=== PATIENT | female | born 1950 | race Caucasian/White ===

== ENCOUNTER 2021-10-24 12:21 | Outpatient (REF) | payer MEDICARE, OTHER, SELFPAY ==
[2021-10-24 15:22] LABS: COVID-19 Test Negative (Negative); IDNOW Serial# 16C4AD1C
== END 2021-10-24 12:22 | disposition home or self-care (01) ==
LOC: HO.LAB 12:21
PROVIDERS: Visit Provider Internal Medicine
DX: Z20.822 Contact with and (suspected) exposure to COVID-19 (principal)
CPT/HCPCS: 36415; 87635

== ENCOUNTER 2025-03-04 11:30 | Outpatient (REF) | payer MEDICARE, OTHER, SELFPAY ==
--- NOTE | ~2025-03-04 | XR_ITS ---
EXAMINATION: XR SINUSES CLINICAL INFORMATION: SINUSITIS COMPARISON: None available. TECHNIQUE: 3 views of the sinuses were obtained. FINDINGS: Paranasal sinuses all appear well pneumatized without definite air-fluid levels present. There is no radiographic evidence of significant sinus disease. The nasal septum appears largely midline. The orbits are intact. The nasal bones are intact. There is no calvarial or bone lesion. The sella is normal in size. Mastoids appear pneumatized. XR/XR sinus min 3V IMPRESSION: No radiographic evidence of significant sinus disease. If warranted, CT is far more sensitive. Electronically signed by: Boone Hsieh MD 03/04/2025 12:22 PM EDT
--- OUTSIDE RECORDS SUMMARY | 2025-03-04 12:22 | XMS_ITS | Patient Health Record ---
Author Organization [facility] Address [address] [place] [address] Care Team Providers Care Evp Name Role Phone Erin Mijares Primary Care Provider Unavail able Allergies Allergen (clinical drug ingredient) Drug/Non Drug Allergy documented on EMR Reaction Allergy Type Onset Date Status Substance with penicillin structure and antibacterial mechanism of action (substance) Penicillins Unknown Drug Allergy Active Reason For Referral No Information Medications Medication SIG (Take, Route, Frequency, Duration) Notes Start Date End Date Status Benicar Active Crestor Active PROzac 1 tab every other day Active Problems Problem Type SNOMED Code ICD Code Onset Dates Problem Status W/U Status Risk Notes Problem [id number] Acquired hallux rigidus of left foot (M20.22) Active confirmed Plan Of Treatment Pending Test Test Name Order Date X ray : Foot, left 3v 05/28/2021 Insurance Providers Payer Name Payer Address Payer Phone Subscriber Number Group Number Insured Name Patient Relationship to Insured Coverage Start Date Coverage End Date Medicare of [place] [address] [place] A[place]Y [id number] Hattie Radford Self - patient is the insured [facility] [address] [place] [address] [id number] Hattie Radford Self - patient is the insured Medical (General) History Medical History History ICD Code Hypertension High cholesterol Surgical History Surgery Date(Month/Year) Deviated septum repair Cataract surgery Tonsilectomy
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
--- OUTSIDE RECORDS SUMMARY | 2025-03-04 12:22 | XMS_ITS | Patient Health Record ---
Author Organization [facility] Address [address] [address] Care Team Providers Care Laundry Helper Name Role Phone DEZ BANKS Primary Care Provider Unavail able STEVE RUBIO Unavailable [phone] Allergies Allergen (clinical drug ingredient) Drug/Non Drug Allergy documented on EMR Reaction Allergy Type Onset Date Status Penicillin Skin Rash Drug Allergy Active Reason For Referral No [...] Problem Status W/U Status Risk Notes Problem Hyperlipidemia, unspecified (E78.5) Active confirmed Problem Recurrent depression (124831652) Other recurrent depressive disorders (F33.8) Active confirmed Problem COVID-19 (330776613) COVID-19 (U07.1) Active confirmed Vital Signs Temperature 96.8 degrees Fahrenheit 03/26/2024 Blood pressure diastolic 78 mm Hg 03/26/2024 Height 61 in 03/26/2024 Blood pressure systolic 126 mm Hg 03/26/2024 Weight 144 lbs 03/26/2024 BMI 27.21 kg/m2 03/26/2024 Encounters Encounter Location Date Provider Diagnosis [address] [place] [address] 03/26/2024 STEVE RUBIO Encounter for gynecological examination [...] breast (ICD-10 - Z12.31) Plan Of Treatment Pending Test Test Name Order Date MM Digital Screening Mammogram 3D 2023 Insurance Providers Payer Name Payer Address Payer Phone Subscriber Number Group Number Insured Name Patient Relationship to Insured Coverage Start Date Coverage End Date MEDICARE [address] [facility] [place] [place] [id number] [phone] [id number] CONSUELO CRUZ Self - patient is the insured 5 [facility] [employer] [address] [place], [place] [id number] CONSUELO CRZU Self - patient is the insured 5 Medical (General) History Medical History History ICD Code Essential (primary) hypertension I10 Hyperlipidemia, unspecified E78.5 Other recurrent depressive disorders F33 .8 Inconclusive mammogram R92.2 Mammographic heterogeneous density, bila teral breasts R92.333 COVID-19 U07.1 Surgical History Surgery Date(Month/Year) Deviated Septum Tonsillectomy Colonoscopy Hospitalization History Reason Date(Month/Year) See Surgical Hx 1 Vaginal Delivery
== END 2025-03-04 11:31 | disposition home or self-care (01) ==
LOC: HO.XRAY 11:30
PROVIDERS: PCP Internal Medicine; Visit Provider Otolaryngology
DX: J32.9 Chronic sinusitis, unspecified (principal)
CPT/HCPCS: 70220

== ENCOUNTER → 2025-03-04 11:37 | Outpatient (BNV) | payer MEDICARE, OTHER, SELFPAY | PROVIDERS: PCP Internal Medicine; Visit Provider Radiology Diagnostic Radiology | DX: J01.90 Acute sinusitis, unspecified (principal) | CPT/HCPCS: 70220 ==